=== PATIENT | female | born 1980 | race Two or more races ===

== ENCOUNTER 2017-07-25 08:32 | Emergency (ER) | payer OTHER ==
[~2017-07-25] VITALS: Ht 152.4 cm; Wt 75.7 kg
[2017-07-25 09:29] LABS: BASOPHIL % 1.5 % (0-2); PLATELET COUNT 393 x10^3mcL (130-400); RED CELL DISTRIBUTION WIDTH 14.3 % (11.5-14.5)
[2017-07-25 09:39] LABS: CALCIUM 8.5 mg/dL (8.5-10.1); CARBON DIOXIDE 28.3 mmol/L (21-32); CHLORIDE SERUM 104 mmol/L (98-107); CREATININE SERUM 0.6 mg/dL (0.6-1.0); GFR1 > 60 mL/min; GLUCOSE SERUM 100 mg/dL (74-106); POTASSIUM SERUM 3.7 mmol/L (3.5-5.1); SODIUM SERUM 138 mmol/L (136-145)
[2017-07-25 09:43] LABS: ALBUMIN 3.7 g/dL (3.4-5.0); ALKALINE PHOSPHATASE 79 U/L (46-116); ALT/SGPT 24 U/L (14-59); AST/SGOT 16 U/L (15-37); BILIRUBIN TOTAL 0.27 mg/dL (0.20-1.00); LIPASE 125 IU/L (73-393); TOTAL PROTEIN, SERUM 8.1 g/dL (6.4-8.2)
[2017-07-25 10:38] VITALS: BP 153/102
== END 2017-07-25 10:49 | disposition home or self-care (01) ==
LOC: ED 08:32
PROVIDERS: Emergency Medicine
DX: S30.1XXA Contusion of abdominal wall, initial encounter (principal); I10 Essential (primary) hypertension; X58.XXXA Exposure to other specified factors, initial encounter; Y93.89 Activity, other specified; Y92.89 Other specified places as the place of occurrence of the external cause; Y99.8 Other external cause status
CPT/HCPCS: J1885; J3010; J7030; Q9967

== ENCOUNTER 2017-09-29 21:57 | Emergency (ER) | payer SELFPAY ==
[~2017-09-29] VITALS: Ht 157.5 cm; Wt 74.8 kg
[2017-09-29 22:10] VITALS: Ht 157.5 cm; Wt 74.8 kg
[2017-09-30 02:38] VITALS: BP 138/93
== END 2017-09-30 02:38 | disposition home or self-care (01) ==
LOC: ED 21:57
DX: M94.0 Chondrocostal junction syndrome [Tietze] (principal)
CPT/HCPCS: 87804; J1885

== ENCOUNTER 2017-10-23 20:37 | Emergency (ER) | payer SELFPAY ==
[~2017-10-23] VITALS: Ht 154.9 cm; Wt 73.5 kg
[2017-10-23 21:34] VITALS: Ht 154.9 cm; Wt 73.5 kg
[2017-10-23 23:12] VITALS: BP 128/83
== END 2017-10-23 23:12 | disposition home or self-care (01) ==
LOC: ED 20:37
DX: G89.29 Other chronic pain (principal); M54.2 Cervicalgia; M54.6 Pain in thoracic spine; I10 Essential (primary) hypertension
CPT/HCPCS: 20552; J2001

== ENCOUNTER 2020-07-14 15:43 | Emergency (ER) | payer MEDICAID ==
[~2020-07-14] VITALS: Ht 154.9 cm; Wt 74.4 kg
[2020-07-14 15:52] VITALS: Ht 154.9 cm; Wt 74.4 kg
[2020-07-14 16:31] LABS: BASOPHIL % 0.5 % (0-2); PLATELET COUNT 217 x10^3mcL (130-400); RED CELL DISTRIBUTION WIDTH 14.2 % (11.5-14.5)
[2020-07-14 16:58] LABS: CALCIUM 8.3 mg/dL (8.5-10.1); CARBON DIOXIDE 28.2 mmol/L (21-32); CHLORIDE SERUM 101 mmol/L (98-107); CREATININE SERUM 0.9 mg/dL (0.6-1.0); GFR1 > 60 mL/min; GLUCOSE SERUM 109 mg/dL (74-106); POTASSIUM SERUM 3.9 mmol/L (3.5-5.1); SODIUM SERUM 139 mmol/L (136-145)
[2020-07-14 17:02] LABS: ALBUMIN 3.6 g/dL (3.4-5.0); ALKALINE PHOSPHATASE 96 U/L (46-116); ALT/SGPT 64 U/L (14-59); AST/SGOT 47 U/L (15-37); TOTAL PROTEIN, SERUM 8.1 g/dL (6.4-8.2)
[2020-07-14 19:37] VITALS: BP 118/75
== END 2020-07-14 19:37 | disposition home or self-care (01) ==
LOC: ED 15:43
DX: B02.9 Zoster without complications (principal); R19.7 Diarrhea, unspecified; R42 Dizziness and giddiness; I10 Essential (primary) hypertension; Z20.828 Contact with and (suspected) exposure to other viral communicable diseases; Z98.890 Other specified postprocedural states
CPT/HCPCS: J1885; J2405; J7030; U0003